=== PATIENT | female | born 1950 | race Caucasian/White ===

== ENCOUNTER → 2018-09-23 | Day surgery (SDC) | payer OTHER, MEDICARE ==
[~2018-09-23] MED LIST: HEPARIN PF 500 UNIT/5 ML DISP.SYRIN. IV ONE; IV RINGERS,LACTATED 1000ML 1,000 ML IV SCH; LIDOCAINE 1% PF 2 ML VIAL. ID PRN; MIDAZOLAM HCL/PF 2 MG/2 ML VIAL. IV PRN; PROPOFOL 20 ML IV ONE; fentaNYL PF VIAL 100 MCG/2 ML VIAL IV PRN
[2018-09-23 09:52] VITALS: BP 155/66
--- NOTE | 2018-09-24 16:06 | PATHOLOGY ---
[facility] Accession Number: [id number] . 01 Material submitted: . PART A: colon - TRANSVERSE COLON POLYP. Modifiers: transverse PART B: colon - SIGMOID POLYP. Modifiers: sigmoid . 01 Clinical history: . Screening . 02 Diagnosis: A. Colon biopsies, transverse colon polyp: - Tubular adenoma. . B. Colon biopsy, sigmoid polyp: - Tubular adenoma. (JPM:rula; 09/24/2018) QMS/09/24/2018 . 02 Comment: There is no high grade dysplasia or evidence of malignancy. . 02 Electronically signed: . Agustín Davis MD, Pathologist NPI- [id number] . 01 Gross description: . A. Received in formalin labeled "Amrein, Andria, transverse colon polyp," are 2 segments of keyes soft tissue measuring 0.8 x 0.3 x 0.3 cm in aggregate dimensions and ranging from 0.3 to 0.5 cm in maximum dimension. The specimen is submitted entirely in cassette A1. . B. Received in formalin labeled "Amrein, Andria, sigmoid polyp," is a 1.3 x 1.0 x 0.9 cm polypoid piece of keyes soft tissue. The margin is inked and the tissue is sectioned perpendicular to the margin and submitted in its entirety in cassettes B1 and B2. (TSD; 09/23/2018) TOB/TOB . 02 Pathologist provided ICD-10: D12.3, D12.5 . 02 CPT . 808631, 195066 Specimen Comment: A courtesy copy of this report has been sent to Specimen Comment: [phone]. Specimen Comment: Report sent to Performed at: [address], [place], [place] [id number] MD Josh Pereira MD Phone: [phone] Performed at: [address] [id number] MD Agustín Davis MD Phone: [phone]
== END | disposition home or self-care (01) ==
LOC: SURG 07:55
PROVIDERS: ATTEND Internal Medicine Gastroenterology
DX: Z12.11 Encounter for screening for malignant neoplasm of colon (principal); D12.3 Benign neoplasm of transverse colon; D12.5 Benign neoplasm of sigmoid colon; K57.30 Diverticulosis of large intestine without perforation or abscess without bleeding; K64.0 First degree hemorrhoids; D64.9 Anemia, unspecified; Z85.3 Personal history of malignant neoplasm of breast; Z80.0 Family history of malignant neoplasm of digestive organs; Z86.79 Personal history of other diseases of the circulatory system
CPT/HCPCS: 45385; 88305; J2704; 45380